=== PATIENT | male | born 1940 | race Asian ===

== ENCOUNTER 2023-05-19 12:46 | Emergency (ER) | payer OTHER ==
[~2023-05-19] VITALS: Ht 172.7 cm; Wt 72.0 kg
[2023-05-19 12:54] VITALS: BP 168/87; PULSE 83; RESP 20; TEMP 98.2; O2SAT 95
== END 2023-05-19 21:31 | disposition left against medical advice (07) ==
LOC: ER 13:04
DX: R42 Dizziness and giddiness (principal); Z53.21 Procedure and treatment not carried out due to patient leaving prior to being seen by health care provider
CPT/HCPCS: 99281